=== PATIENT | female | born 1985 | race African-American/Black ===

== ENCOUNTER 2024-05-28 15:21 | Emergency (ER) | payer OTHER ==
[~2024-05-28] VITALS: Ht 162.6 cm; Wt 83.0 kg
[2024-05-28 15:38] VITALS: PULSE 90; RESP 16; TEMP 99.4; O2SAT 100
== END 2024-05-28 15:43 | disposition home or self-care (01) ==
LOC: ER 15:32
DX: T63.301A Toxic effect of unspecified spider venom, accidental (unintentional), initial encounter (principal)
CPT/HCPCS: 99283